=== PATIENT | male | born 1975 | race Caucasian/White ===

== ENCOUNTER 2023-11-14 10:02 | Day surgery (SDC) | payer BC ==
[~2023-11-14 10:02] MED LIST: Albuterol 0.083% 2.5 MG/3 ML Neb Soln NEB PRN; HYDROmorphone 1 MG/ML Syringe IVPUSH PRN; Metoclopramide 10 MG/2 ML SDV IVPUSH PRN; Morphine 2 MG/ML SYRINGE IVPUSH PRN; Naloxone 0.4 MG/ML SDV IVPUSH PRN; Ondansetron 4 MG/2 ML SDV IVPUSH PRN; Ropivacaine 0.5% 5 MG/ML 30 ML SDV ONE; droPERidol 5 MG/2 ML SDV IVPUSH PRN; fentaNYL 50 MCG/ML SDV IVPUSH PRN
[2023-11-14] MEDS: Lactated Ringers 1,000 ML IV SCH (10:30)
[2023-11-14] MEDS ORDERED: Bupivacaine 0.25% 30 ML SDV ONE (10:44)
[2023-11-14] MEDS ORDERED: propofoL 50 ML ONE (11:21)
[2023-11-14] MEDS ORDERED: dexmedeTOMIDine HCl 200 MCG/2 ML SDV ONE (11:23)
[2023-11-14] MEDS ORDERED: fentaNYL 100 MCG/2 ML SDV ONE (11:40)
[2023-11-14] MEDS ORDERED: Lidocaine 1% 20 ML MDV ONE (11:41)
[2023-11-14] MEDS ORDERED: Ketamine HCL/NACL, ISO-OSM 50 MG/5 ML Syringe ONE (11:42)
[2023-11-14] MEDS ORDERED: ceFAZolin 2 GM Vial ONE (11:44)
[2023-11-14] MEDS ORDERED: ceFAZolin 1 GM Vial ONE (11:48)
[2023-11-14] MEDS ORDERED: Ketorolac 30 MG/ML SDV ONE (11:58)
== END 2023-11-14 13:45 | disposition home or self-care (01) ==
LOC: MW.SDS 10:02
PROVIDERS: ATTEND Orthopaedic Surgery
DX: G56.02 Carpal tunnel syndrome, left upper limb (principal); F41.9 Anxiety disorder, unspecified; E66.9 Obesity, unspecified; J44.9 Chronic obstructive pulmonary disease, unspecified; I10 Essential (primary) hypertension; F17.210 Nicotine dependence, cigarettes, uncomplicated; Z86.16 Personal history of COVID-19; Z79.899 Other long term (current) drug therapy; Z68.33 Body mass index [BMI] 33.0-33.9, adult
CPT/HCPCS: 64721; J0665; J0690; J1885; J2704; J2795; J3010; J7120; 01810; J3490